=== PATIENT | female | born 1985 | race African-American/Black ===

== ENCOUNTER 2016-10-30 15:02 | Emergency (ER) | payer OTHER ==
[2016-10-30 15:47] VITALS: BP 113/73; PULSE 81; RESP 18; TEMP 98.2; O2SAT 97
--- NOTE | 2016-10-30 16:21 | UCPHY ---
[id number]/01/17 15:47 HPI/ROS: CHIEF COMPLAINT: Cough, right ear pain HISTORY OF PRESENT ILLNESS: 31-year-old female presents to Urgent Care complaining of cough and right ear pain. The patient has been sick for the last 2 days. Her is sick with similar symptoms. No fevers or chills. No chest pain or difficulty breathing. No sore throat. No rash. No abdominal pain, vomiting or diarrhea. No headache. No neck or back pain. She denies right hearing loss. Denies symptoms in the left ear. REVIEW OF SYSTEMS: Constitutional: No fever, no chills. Eyes: No double or blurry vision. ENT: No sore throat. Respiratory: Cough, no shortness of breath. Cardiac: No chest pain. Gastrointestinal: No abdominal pain, vomiting or diarrhea. Genitourinary: No dysuria. Musculoskeletal: No neck or back pain. Skin: No rashes. Neurological: No headache. (Brenda Pedersen) Past Medical/Surgical History: Negative (Brenda Pedersen) Social History: (Brenda Pedersen) Physical Exam: General Appearance: Alert, no distress. 36.8, 97% on room air Eyes: Pupils equal and round. Extraocular motions are all intact. ENT: Mouth: Mucous membranes moist. Right tympanic membrane does not reveal any redness or bulging. There is some clear fluid behind the right tympanic membrane. Left ear is clear. Respiratory: No wheezing, rhonchi, or rales, lungs are clear to auscultation. Cardiovascular: Regular rate and rhythm. Gastrointestinal: Abdomen is soft and nontender, no masses, no rebound or guarding, bowel sounds normal. Neurological: Alert and oriented x 3, cranial nerves II through XII grossly intact Skin: Warm and dry, no rashes. Musculoskeletal: Nontender to palpate along the cervical, thoracic or lumbar spine. Neck is supple. Extremities: Full range of motion and no peripheral edema. Psychiatric: Patient is oriented X 3, there is no agitation. (Brenda Pedersen) Constitutional: Initial Vital Signs Temperature (C) 36.8 C 10/30/16 15:43 Heart Rate 81 10/30/16 15:43 Respiratory Rate 18 10/30/16 15:43 Blood Pressure 113/73 10/30/16 15:43 O2 Sat (%) 97 10/30/16 15:43 O2 Delivery Mode Room Air Allergies/Adverse Reactions: No Known Allergies Allergy (Unverified 10/30/16 15:43) Home Medications: Medication Instructions Recorded NK [No Known Home Meds] 10/30/16 Medical Decision Making ED Course/Re-evaluation: 31-year-old female presents with cough and right ear pain. Clinically I think this patient has viral upper respiratory infection. I encouraged her to take guaifenesin to help relieve congestion in her right ear. There is no evidence of otitis media. Do not think antibiotics are indicated. (Brenda Pedersen) Urgent Care PA supervision Physician documentation: The patient was evaluated and managed by the physician volunteer assistant. My co- signature indicates that I have reviewed this chart and I agree with the findings and plan of care as documented. I am the secondary supervising physician. (Liu Jackson) Differential Diagnosis: Including but not limited to viral upper respiratory infection, otitis media, serous otitis, influenza, bronchitis, pneumonia (Brenda Pedersen) Departure - Departure Disposition: Home, Routine, Self-Care Clinical Impression: Upper respiratory infection Condition: Good Instructions: Upper Respiratory Infection (ED) Additional Instructions: Adult Pain & Fever Control: We recommend Acetaminophen (Tylenol) and Ibuprofen (Motrin,Advil) for pain and fever control. When fever is high or pain severe, both drugs can be used at the same time, but at different intervals. Please note the time differences. Your dose is: Acetaminophen 1000mg every 4 to 6 hours Ibuprofen 600mg every 8 hours with food Note: do not take Acetaminophen with Hydrocodone (Vicodin, Lortab) or Oycodone (Percocet). These medications also contain Acetaminophen. No more than 3000mg of Acetaminophen should be taken in 24 hours (for an adult). Guaifenesin, Mucinex, 600-1200 mg twice daily to help relieve congestion in your ear. Referrals: NONE *PRIMARY CARE P,. [Primary Care Provider] - As per Instructions Stand Alone Forms: Work Excuse - PQRS PQRS Measurement: Not applicable (Brenda Pedersen)
== END 2016-10-30 16:31 | disposition home or self-care (01) ==
LOC: CED 15:02
DX: R05 Cough (principal); H92.01 Otalgia, right ear
CPT/HCPCS: 99213-PO; G0463-PO

== ENCOUNTER 2017-03-16 11:20 | Emergency (ER) | payer OTHER ==
[2017-03-16 11:42] VITALS: TEMP 98; O2SAT 96
--- NOTE | 2017-03-16 11:43 | EDPHY ---
H & P Time Seen by Provider: 03/16/17 11:30 HPI/ROS: HPI Fainting. 31-year-old female by private vehicle. This patient reports that last night she woke up in the middle the night with a cramping lower abdominal discomfort typical of an urge to have a bowel movement. She got up out of bed, went to the bathroom, sat down on the toilet had a bowel movement and then as she stood up from the toilet and was going back to her bedroom she became very lightheaded and fainted. She then woke up on the floor the bathroom. She went back to bed. She reports that she woke up this morning and felt shaky. She had some crackers and some water prior to coming here and that made her feel better. She reports that she has a past history of syncopal events associated with standing from sitting position followed by seizures. She has not had a seizure in 12 years. She is not on any antiepileptic medications. She denies alcohol. No IV drugs or street drugs. She denies any loss of sensation or weakness in her extremities. No neck pain. No headache. No changes in vision. She denies any associated palpitations, chest pain, shortness of breath. No other complaints. ROS: Constitutional: No fever, no chills. As above. Eyes: No discharge. No changes in vision. ENT: No sore throat. No nasal congestion or rhinorrhea. Respiratory: No cough. No shortness of breath. Cardiac: No chest pain, no palpitations. Gastrointestinal: No abdominal pain, no vomiting, no diarrhea. Genitourinary: No hematuria. No dysuria or increased frequency with urination. Musculoskeletal: No back pain. No neck pain. No myalgias or arthralgias. Skin: No rashes. Neurological: No headache. No focal weakness or altered sensation. Past medical history: As above. Social history: Nonsmoker. Here by herself. No alcohol. Physical Exam: General Appearance: Alert, no distress. This patient is responding to questions appropriately and in full sentences. This patient appears well- hydrated and well-nourished. Eyes: Pupils equal and round no pallor or injection. No lid edema, erythema or injection. No photophobia. No nystagmus. ENT, Mouth: Mucous membranes are moist. The pharyngeal tissues are unremarkable. No edema or swelling. No asymmetry suggestive of abscess. No erythema or exudates. No tongue lacerations or abrasions. Respiratory: There are no retractions, lungs are clear to auscultation with good air movement bilaterally. Cardiovascular: Regular rate and rhythm. No murmur. Gastrointestinal: Abdomen is soft and nontender, no masses, bowel sounds normal. No focal tenderness at McBurney's point. No Mcdaniel sign. Neurological: Motor sensory function is grossly intact. Cranial nerves are normal. Gait is normal. Skin: Warm and dry, no rashes. Musculoskeletal: Neck is supple and nontender. Extremities are symmetrical. All joints range without pain or impingement. Psychiatric: No agitation. No depression. Database: EKG: EKG time is 11:44 a.m.; EKG shows a narrow complex normal sinus rhythm with a ventricular rate of 82. Q-waves noted in inferior leads. The MD, QRS, QT intervals are within normal limits. There are no ST-T wave changes indicative of ischemic or injury pattern. No evidence of right heart strain. No evidence of WPW, Brugada syndrome, hypertrophic cardiomyopathy, arrhythmia Mandeep right ventricular dysplasia. Interpreted by me. Imaging: Procedures: Emergency department course: EKG and i-STAT chemistry performed. Sodium and glucose unremarkable. No red flags on her EKG. Vital signs reviewed and are normal. Her physical exam and history is reassuring that this was a vasovagal type syncopal event. I feel she is safe for discharge and she feels comfortable going home. Follow-up and return to emergency department precautions were discussed with her. All of her questions were answered. She was discharged in good condition. Differential Diagnosis: The differential diagnosis on this patient includes but is not limited to noncardiac syncope, vasovagal syncope. Arrhythmia, seizure, subarachnoid hemorrhage, acute coronary syndrome, pulmonary embolism, CVA unlikely. This represents a partial list of diagnoses considered. These considerations are based on history, physical exam, past history, reassessment and diagnostic testing. Smoking Status: Never smoked Constitutional: Initial Vital Signs Temperature (C) 36.6 C 03/16/17 11:30 Respiratory Rate 18 03/16/17 11:30 Blood Pressure 118/77 03/16/17 11:30 O2 Sat (%) 96 03/16/17 11:30 O2 Delivery Mode Room Air Allergies/Adverse Reactions: No Known Allergies Allergy (Unverified 10/30/16 15:43) Home Medications: Medication Instructions Recorded NK [No Known Home Meds] 10/30/16 Departure - Departure Disposition: Home, Routine, Self-Care Clinical Impression: Syncope, Vasovagal syncope Condition: Good Instructions: Syncope (ED) Additional Instructions: Read and follow provided instructions. Follow-up with your primary care physician in 1-2 days for re-evaluation. Keep well hydrated. Drink lots of fluids. Return to the emergency department for lightheadedness, chest pain, palpitations or other serious concerns.
[2017-03-16 12:24] VITALS: BP 112/66; PULSE 77; RESP 16
--- NOTE | 2017-03-16 12:31 | CPEKG ---
Heart Rate: 82 RR Interval: 732 P-R Interval: 160 QRSD Interval: 88 QT Interval: 380 QTC Interval: 444 P [place]: 46 QRS [place]: 53 T Wave [place]: 6 EKG Severity - BORDERLINE ECG - EKG Impression: SINUS RHYTHM EKG Impression: INFERIOR Q WAVES, PROBABLY NORMAL VARIATION Electronically Signed By: Babar Mckinney 16-Mar-2017 12:30:13
== END 2017-03-16 12:22 | disposition home or self-care (01) ==
LOC: CED 11:20
DX: R55 Syncope and collapse (principal)
CPT/HCPCS: 82947-QW

== ENCOUNTER 2017-07-07 10:02 | Emergency (ER) | payer OTHER ==
[2017-07-07 10:10] VITALS: BP 105/76; PULSE 86; RESP 16; TEMP 98.1; O2SAT 98
[2017-07-07] MEDS ORDERED: IBUPROFEN 200 MG TAB PO ONE (10:12)
--- NOTE | 2017-07-07 10:19 | EDPHY ---
H & P Stated Complaint: rt jaw and upper rt tooth pain started yesterday.denies fever. c/o AARON Time Seen by Provider: 07/07/17 10:10 HPI/ROS: CHIEF COMPLAINT: Dental pain HISTORY OF PRESENT ILLNESS: The patient is a 32-year-old healthy female who comes to the emergency department complaining of dental pain. It began last night. She denies trauma. It is radiating to her upper cheek. No visible swelling. No erythema. No fever. REVIEW OF SYSTEMS: Constitutional: denies: chills, fever, recent illness, recent injury EENTM see HPI,: denies: blurred vision, double vision, nose congestion Respiratory: denies: cough, shortness of breath Cardiac: denies: chest pain, irregular heart rate, lightheadedness, palpitations Gastrointestinal/Abdominal: denies: abdominal pain, diarrhea, nausea, vomiting, blood streaked stools Genitourinary: denies: dysuria, frequency, hematuria, pain Musculoskeletal: denies: joint pain, muscle pain Skin: denies: lesions, rash, jaundice, bruising Neurological: denies: headache, numbness, paresthesia, tingling, dizziness, weakness Hematologic/Lymphatic: denies: blood clots, easy bleeding, easy bruising Immunologic/allergic: denies: HIV/AIDS, transplant EXAM: GENERAL: Well-appearing, well-nourished and in no acute distress. HEAD: Atraumatic, normocephalic. EYES: Pupils equal round and reactive to light, extraocular movements intact, sclera anicteric, conjunctiva are normal. ENT: See diagram, TMs normal, nares patent, oropharynx clear without exudates. Moist mucous membranes. NECK: Normal range of motion, supple without lymphadenopathy or JVD. LUNGS: Breath sounds clear to auscultation bilaterally and equal. No wheezes rales or rhonchi. HEART: Regular rate and rhythm without murmurs, rubs or gallops. ABDOMEN: Soft, nontender, normoactive bowel sounds. No guarding, no rebound. No masses appreciated. BACK: No CVA tenderness, no spinal tenderness, step-offs or deformities EXTREMITIES: Normal range of motion, no pitting or edema. No clubbing or cyanosis. NEUROLOGICAL: Cranial nerves II through XII grossly intact. Normal speech, normal gait. 5/5 strength, normal movement in all extremities, normal sensation PSYCH: Normal mood, normal affect. SKIN: Warm, dry, normal turgor, no visible rashes or lesions. Source: Patient Exam Limitations: No limitations - Personal History LMP (Females 10-55): 8-14 Days Ago - Medical/Surgical History Hx Asthma: No Hx Chronic Respiratory Disease: No Hx Diabetes: No Hx Cardiac Disease: No Hx Renal Disease: No Hx Cirrhosis: No Hx Alcoholism: No Hx HIV/AIDS: No Hx Splenectomy or Spleen Trauma: No Other PMH: denies - Family History Significant Family History: No pertinent family hx - Social History Smoking Status: Never smoked Alcohol Use: Sober Drug Use: None Constitutional: Initial Vital Signs Temperature (C) 36.7 C 07/07/17 10:07 Heart Rate 86 07/07/17 10:07 Respiratory Rate 16 07/07/17 10:07 Blood Pressure 105/76 07/07/17 10:07 O2 Sat (%) 98 07/07/17 10:07 O2 Delivery Mode Room Air Allergies/Adverse Reactions: No Known Allergies Allergy (Verified 07/07/17 10:06) Home Medications: Medication Instructions Recorded Amoxicillin/Clavulanate Pot 875 mg PO BID #14 tab 07/07/17 [Augmentin 875Mg] Hydrocodone/APAP 5/325 [[place] 1 - 2 tab PO Q4H PRN #7 tab 07/07/17 5/325 (RX)] ED Images - Head Mouth: 1 - Tender to percussion, apolonia visible, no swelling or inflammation. No purulence. Medical Decision Making ED Course/Re-evaluation: The patient has dental caries and likely an early apical abscess. I will start her on amoxicillin and have her follow up with a dentist. She states that she has an appointment in 2 weeks plain encouraged her to move this up. Differential Diagnosis: Partial list of the Differential diagnosis considered include but were not limited to; dental caries, dental abscess and although unlikely based on the history and physical exam, I also considered zoster, stone, migraine, temporal arteritis. I discussed these differential diagnoses and the plan with the patient as well as the usual and expected course. The patient understands that the diagnosis is provisional and that in medicine we are not always correct and that further workup is often warranted. Usual and customary warnings were given. All of the patient's questions were answered. The patient was instructed to return to the emergency department should the symptoms at all worsen or return, otherwise to followup with the physician as we discussed. - Data Points Medications Given: Discontinued Medications Ibuprofen (Motrin) 600 mg PO EDNOW ONE Stop: 07/07/17 10:13 Last Admin: 07/07/17 10:14 Dose: 600 mg Departure - Departure Disposition: Home, Routine, Self-Care Clinical Impression: Pain, dental Condition: Fair Instructions: Hydrocodone/Acetaminophen (By mouth), Amoxicillin/Clavulanate Potassium (By mouth), Toothache (ED) Referrals: NONE *PRIMARY CARE P,. [Primary Care Provider] - As per Instructions Stand Alone Forms: Work Excuse Prescriptions: Amoxicillin/Clavulanate Pot [Augmentin 875Mg] 875 mg PO BID #14 tab Hydrocodone/APAP 5/325 [[place] 5/325 (RX)] 1 - 2 tab PO Q4H PRN #7 tab PRN Reason: Pain, Moderate
== END 2017-07-07 10:45 | disposition home or self-care (01) ==
LOC: CED 10:02
DX: K08.89 Other specified disorders of teeth and supporting structures (principal)

== ENCOUNTER 2018-12-10 16:07 | Emergency (ER) | payer MEDICAID ==
[2018-12-10 16:26] VITALS: BP 117/75
--- NOTE | 2018-12-10 16:28 | EDPHY ---
H & P Stated Complaint: urinary frequency/lightheaded Time Seen by Provider: 12/10/18 16:15 HPI/ROS: Chief Complaint: Urinary urgency and frequency HPI: 33-year-old whose last menstrual. Was the 21 of November is presenting with 1 day of urinary urgency and frequency. Is also complaining of some lightheadedness. Patient states the last time she felt this way she found out she was . No back pain. No nausea or vomiting. Has had a scant amount of white discharge. No bleeding or malodorous discharge. No pelvic pain. ROS: 10 systems were reviewed and were negative except those elements noted in the HPI. PMH: Denies Social History: No smoking, no alcohol, no recreational drug use Family History: non-contributory Physical Exam: Gen: Awake, Alert, No Distress HEENT: Nose: no rhinorrhea Eyes: PERRLA, EOMI Mouth: Moist mucosa Neck: Supple, no JVD Chest: nontender, lungs clear to auscultation Heart: S1, S2 normal, no murmur Abd: Soft, non-tender, no guarding Back: no CVA tenderness, no midline tenderness Ext: no edema, non-tender Skin: no rash Neuro: CN II-XII intact, Sensation grossly intact, Strength 5/5 in bilateral upper and lower extremities - Personal History Tetanus Vaccine Date: 2017 - Medical/Surgical History Hx Asthma: No Hx Chronic Respiratory Disease: No Hx Diabetes: No Hx Cardiac Disease: No Hx Renal Disease: No Hx Cirrhosis: No Hx Alcoholism: No Hx HIV/AIDS: No Hx Splenectomy or Spleen Trauma: No Other PMH: Med hx- anemia. Surg-none - Social History Smoking Status: Never smoked Constitutional: Initial Vital Signs Temperature (C) 36.8 C 12/10/18 16:14 Heart Rate 85 12/10/18 16:14 Respiratory Rate 12 12/10/18 16:14 Blood Pressure 117/75 12/10/18 16:14 O2 Sat (%) 97 12/10/18 16:14 Allergies/Adverse Reactions: No Known Allergies Allergy (Verified 07/07/17 10:06) Home Medications: Medication Instructions Recorded Amoxicillin/Clavulanate Pot 875 mg PO BID #14 tab 07/07/17 [Augmentin 875Mg] Hydrocodone/APAP 5/325 [[place] 1 - 2 tab PO Q4H PRN #7 tab 07/07/17 5/325 (RX)] Penicillin V Potassium [Pen Vk 500 mg PO BID #20 tab 08/22/18 500mg (*)] Nitrofurantoin Monohyd/M-Cryst 100 mg PO BID #10 capsule 12/10/18 [Macrobid 100 mg Capsule] Medical Decision Making ED Course/Re-evaluation: Urinalysis does not show evidence of UTI. Patient is not . Patient states she feels like she has urinary tract infection symptoms. Will give her prescription for Macrobid. She will start taking his if her symptoms persist. She will follow up with primary care in about a week. - Data Points Point of Care Test Results: Urine Collection Date 12/10/18 Collection Time 16:30 HCG Results Negative Urine Dip Collection Date 12/10/18 Collection Time 16:30 Specific [place] (1.002-1.030) 1.030 PH (5.0-7.5) 6.5 Leukocytes (Negative) Negative Nitrites (Negative) Negative Protein (Negative) Negative Glucose (Negative) Negative Ketones (Negative) Negative Urobilnogen (0.2-1.0 EU) 0.2 Bilirubin (Negative) Negative Blood (Negative) Trace Departure - Departure Disposition: Home, Routine, Self-Care Clinical Impression: Dysuria Condition: Good Instructions: Dysuria (ED) Additional Instructions: If you're continuing to have increased urination or discomfort with urination in 2 days begin taking the prescribed antibiotics. Follow up with primary care physician in about a week if symptoms are not improving. Referrals: NONE *PRIMARY CARE P,. [Primary Care Provider] - As per Instructions Prescriptions: Nitrofurantoin Monohyd/M-Cryst [Macrobid 100 mg Capsule] 100 mg PO BID #10 capsule
== END 2018-12-10 17:19 | disposition home or self-care (01) ==
LOC: CED 16:07
DX: R30.0 Dysuria (principal); R39.15 Urgency of urination; R35.0 Frequency of micturition
CPT/HCPCS: 99283-ER